=== PATIENT | male | born 1945 | race Caucasian/White ===

== ENCOUNTER 2019-11-14 07:45 | Outpatient (CLI) | payer OTHER | END 2019-11-14 07:47 | disposition home or self-care (01) | LOC: NUCLEAR 07:45 | PROVIDERS: ATTEND Internal Medicine Cardiovascular Disease | DX: I25.6 Silent myocardial ischemia (principal); J45.909 Unspecified asthma, uncomplicated; I50.20 Unspecified systolic (congestive) heart failure | CPT/HCPCS: 78452; 93017; A9500; J1250 ==